=== PATIENT | male | born 1960 | race Caucasian/White ===

== ENCOUNTER 2019-12-08 00:06 | Emergency (ER) | payer SELFPAY ==
[~2019-12-08] VITALS: Ht 190.5 cm; Wt 85.0 kg
[~2019-12-08 00:06] MED LIST: HYDR-3150 PO
--- NOTE | 2019-12-08 00:17 | NUR ---
Patient BIB ambulance c/o right flank pain, blood in urine, and decreased urine output. Patient has a hx of kidney stones and states this feels the same. Per EMS, patient received 4mg Zofran and 100mcg Fentanyl [employer]. Patient states after those meds he is not nauseous and his pain decreased slightly. Patient is in obvious pain. Respirations even and unlabored.
[2019-12-08] MEDS ORDERED: KETOROLAC 30 MG/1 ML IVPush ONE (00:30)
[2019-12-08] MEDS ORDERED: SODIUM CHLORIDE FLUSH 10ML SYR IVF ONE (00:30)
[2019-12-08] MEDS ORDERED: KETOROLAC 30 MG/1 ML ONE (00:43)
[2019-12-08 01:06] LABS: BASOPHILS % (AUTO) 1 % (0-1); EOSINOPHILS % (AUTO) 1 % (1-7); LYMPHOCYTES % (AUTO) 20 % (22-44); MEAN CORPUSCULAR HEMOGLOBIN 30.1 pg (27.5-34.5); MEAN CORPUSCULAR HGB CONC 33.4 g/dL (33.2-36.2); MEAN PLATELET VOLUME 9.2 fL (7.4-10.4); MONOCYTES % (AUTO) 7 % (2-9); NEUTROPHILS % (AUTO) 71 % (42-75); PLATELET COUNT 218 x10^3/uL (130-400); RED BLOOD COUNT 5.05 x10^6/uL (4.38-5.82); RED CELL DISTRIBUTION WIDTH 15.6 % (9.4-14.8)
[2019-12-08 01:10] LABS: ALANINE AMINOTRANSFERASE 22 U/L (12-78); ALBUMIN 3.8 g/dL (3.4-5.0); ANION GAP 7 mmol/L (5-15); CHLORIDE 107 mmol/L (98-107); MD NO
[2019-12-08 01:12] LABS: ALKALINE PHOSPHATASE 80 U/L (45-117); BILIRUBIN,TOTAL 0.4 mg/dL (0.2-1.0)
--- NOTE | 2019-12-08 01:38 | NUR ---
BREAK RN: PT. RESTING ON GURNEY WITH NO DISTRESS. DENIES ANY PAIN AT THIS TIME. AWAITING CT READ. PT. REQUESTING WATER IN ORDER TO PROVIDE UA. PER DR. JARROD GONZALEZ FOR PT. TO HAVE WATER; WILL PROVIDE. URINAL IS AT BS AND CLEAN CATCH INSTRUCTIONS EXPLAINED. SPO2 AND B/P MONITORS IN PLACE. CALL LIGHT IN REACH. ALL SAFETY MEASURES OBSERVED.
--- NOTE | 2019-12-08 02:01 | NUR ---
ASSIST STAFF: UPDATED PATIENT ON PLAN OF CARE, INFORMED PATIENT OF NEEDED URINE SPECIMEN. PATIENT VERBALIZED UNDERSTANDING. UPDATED PROVIDER.
[2019-12-08] MEDS ORDERED: MORPHINE SULFATE 4 MG/ML, 1ML ONE (02:46)
[2019-12-08] MEDS ORDERED: ONDANSETRON 2MG/ML, 2ML ONE (02:46)
--- NOTE | 2019-12-08 02:50 | NUR ---
Proxy charting due to [employer] downtime: Morphine and Zofran administered per paper charting order.
[2019-12-08 04:00] VITALS: BP 115/73
[2019-12-08 04:37] LABS: MICROSCOPIC INDICATED
--- NOTE | 2019-12-08 05:20 | NUR ---
Discharge instructions given. All questions and concerns addressed. Patient ambulatory with a steady gait. Belongings with patient.
== END 2019-12-08 05:21 | disposition home or self-care (01) ==
LOC: ED 00:18
DX: N13.2 Hydronephrosis with renal and ureteral calculous obstruction (principal); R11.2 Nausea with vomiting, unspecified; R10.31 Right lower quadrant pain
CPT/HCPCS: 36415; 74176; 80053; 81001; 85025; 87086; 96374; 99285; J1885